=== PATIENT | male | born 2000 | race Caucasian/White ===

== ENCOUNTER 2018-12-14 10:46 | Emergency (ER) | payer BC ==
[~2018-12-14] VITALS: Ht 182.9 cm; Wt 90.9 kg
[~2018-12-14 10:46] MED LIST: NO HOME MEDICATIONS; ZARTAN500 MG PO
[2018-12-14 11:37] VITALS: BP 126/62
== END 2018-12-14 11:37 | disposition home or self-care (01) ==
LOC: ED 10:46
DX: S61.011A Laceration without foreign body of right thumb without damage to nail, initial encounter (principal); Z23 Encounter for immunization; W27.8XXA Contact with other nonpowered hand tool, initial encounter; Y92.69 Other specified industrial and construction area as the place of occurrence of the external cause; Y99.0 Civilian activity done for income or pay
CPT/HCPCS: 90715